=== PATIENT | female | born 1955 | race Caucasian/White ===

== ENCOUNTER 2016-08-07 11:48 | Emergency (ER) | payer OTHER | END 2016-08-07 12:51 | disposition home or self-care (01) | DX: N30.01 Acute cystitis with hematuria (principal) ==

== ENCOUNTER 2018-03-07 18:25 | Outpatient (CLI) | payer SELFPAY | END 2018-03-07 18:26 | disposition EMS.NT | LOC: EMS 18:25 | PROVIDERS: ATTEND Surgery | DX: S01.81XA Laceration without foreign body of other part of head, initial encounter (principal); W20.8XXA Other cause of strike by thrown, projected or falling object, initial encounter; Y92.009 Unspecified place in unspecified non-institutional (private) residence as the place of occurrence of the external cause ==

== ENCOUNTER 2018-05-13 12:36 | Emergency (ER) | payer OTHER ==
[2018-05-13] MEDS ORDERED: IBUPROFEN 800 MG TABLET PO STA (13:02)
[2018-05-13] MEDS ORDERED: IPRATROPIUM/ALBUTEROL 3 ML NEB INH STA (13:02)
--- NOTE | 2018-05-13 13:07 | ED Physician Documentation ---
PD HPI URI - Stated complaint Stated Complaint: FLU LIKE SX - Chief complaint Chief Complaint: Resp - History obtained from History obtained from: Patient - History of Present Illness Timing duration: Days (several) Timing details: Gradual onset Associated symptoms: Fever, Nasal congestion, Productive cough - Additional information Additional information: The patient is a 62-year-old female who presents with cough and congestion of several days duration. She reports having low-grade fever for the past 2 days. She complains of myalgias, sore throat, and feeling generally miserable. She denies headache, shortness of breath, nausea or vomiting. Review of Systems Constitutional: reports: Fever, Myalgias, Fatigue Eyes: denies: Irritation Ears: denies: Ear pain Nose: reports: Congestion Throat: reports: Sore throat Cardiac: denies: Chest pain / pressure Respiratory: reports: Cough. denies: Dyspnea GI: denies: Abdominal Pain, Nausea, Vomiting : denies: Dysuria Skin: denies: Rash Musculoskeletal: denies: Neck pain Neurologic: denies: Headache PD PAST MEDICAL HISTORY - Past Medical History Cardiovascular: None Respiratory: Pneumonia Endocrine/Autoimmune: None GI: None : Chronic bladder infection HEENT: None Psych: Depression Musculoskeletal: None Derm: None - Past Surgical History Past Surgical History: Yes /[employer]: Dilation and currettage - Present Medications Home Medications: Ambulatory Orders Medication Instructions Recorded Confirmed Escitalopram [Lexapro] 10 mg PO DAILY 12/19/15 05/13/18 Estrogens, Conjugated Cream 42.5 gm VG DAILY 12/19/15 05/13/18 [Premarin Cream] Primidone 50 mg PO DAILY 12/19/15 05/13/18 Propranolol [Inderal] 40 mg PO DAILY 12/19/15 05/13/18 traZODone [Desyrel] 50 mg PO HS 12/19/15 05/13/18 Albuterol Sulf [Ventolin Hfa 1 - 2 puffs INH Q4HR PRN #1 inhaler 05/13/18 Inhaler] - Allergies Allergies/Adverse Reactions: Allergies Allergy/AdvReac Type Severity Reaction Status Date / Time Penicillins Allergy Unknown Verified 12/19/15 20:08 Sulfa (Sulfonamide Allergy Unknown Verified 12/19/15 20:08 Antibiotics) codeine AdvReac Nausea Verified 05/13/18 12:44 - Social History Does the pt smoke?: No Smoking Status: Never smoker Does the pt drink ETOH?: Yes Does the pt have substance abuse?: No - Immunizations Immunizations are current?: Yes PD ED PE NORMAL - Vitals Vital signs reviewed: Yes (normal) - General General: Alert and oriented X 3, Well developed/nourished - HEENT HEENT: Atraumatic, EOMI, Ears normal, Pharynx benign - Neck Neck: Supple, no meningeal sign, No adenopathy - Cardiac Cardiac: RRR, No murmur - Respiratory Respiratory: Other (Faint expiratory wheezing bilaterally.) - Abdomen Abdomen: Soft, Non tender - Back Back: No CVA TTP - Derm Derm: No rash - Extremities Extremities: No edema, No calf tenderness / cord - Neuro Neuro: Alert and oriented X 3, No motor deficit, Normal speech Results - Vitals Vitals: Vital Signs - 24 hr 05/13/18 05/13/18 05/13/18 12:42 13:13 14:05 Temperature 36.7 C 36.6 C Heart Rate 48 L 74 70 Respiratory 18 18 16 Rate Blood Pressure 90/60 98/62 O2 Saturation 96 98 Oxygen O2 Source Room air - Labs Labs: Laboratory Tests 05/13/18 13:14 Influenza A (Rapid) Negative Influenza B (Rapid) Negative PD MEDICAL DECISION MAKING - ED course Complexity details: reviewed results, re-evaluated patient, considered differential, d/w patient ED course: The patient's presentation is most consistent with acute asthmatic bronchiolitis. Influenza swab is negative. I doubt pneumonia or pulmonary embolus. Treatment in the emergency department included administration of DuoNeb nebulizer, which completely cleared her wheezing. Ibuprofen 800 mg is administered orally. She is being discharged with prescription for albuterol nebulizer. I discussed with her the expected course of illness, symptomatic treatment and outpatient follow-up, as well as potentially worrisome signs or symptoms that should prompt reevaluation in the emergency department. Departure - Departure Disposition: 01 Home, Self Care Clinical Impression: Asthmatic bronchitis Qualifiers: Asthma severity: unspecified severity Asthma persistence: unspecified Asthma complication type: uncomplicated Qualified Code(s): J45.909 - Unspecified asthma, uncomplicated Condition: Stable Instructions: ED Bronchitis Asthmatic Follow-Up: Whitney Ham MD [Primary Care Provider] - Prescriptions: Albuterol Sulf [Ventolin Hfa Inhaler] 1 - 2 puffs INH Q4HR PRN #1 inhaler PRN Reason: Shortness Of Air/Wheezing Comments: Use albuterol inhaler as prescribed if needed for shortness of breath or cough. You can use Tylenol or ibuprofen if needed for fever or achiness. Follow-up with your primary physician within 1-2 weeks. Call to schedule an appointment. Return to the emergency department if you develop increasing difficulty breathing, or otherwise worsening symptoms. Forms: Activity restrictions Discharge Date/Time: 05/13/18 14:07
[2018-05-13 14:07] VITALS: BP 98/62
== END 2018-05-13 14:07 | disposition home or self-care (01) ==
LOC: ED 12:36
DX: J45.909 Unspecified asthma, uncomplicated (principal)
CPT/HCPCS: 87275; 87276; 94640; 99283; A9270